=== PATIENT | male | born 1985 ===

== ENCOUNTER → 2021-11-06 | Outpatient (REF) | LOC: M PLAIMG 11:14 | PROVIDERS: ATTEND Internal Medicine | DX: R52 Pain, unspecified (principal); R06.02 Shortness of breath ==

== ENCOUNTER → 2022-02-15 | Outpatient (REF) | LOC: M PLAIMG 10:48 | PROVIDERS: ATTEND Internal Medicine | DX: R52 Pain, unspecified (principal) ==